=== PATIENT | female | born 1970 | race Caucasian/White ===

== ENCOUNTER → 2019-02-19 | Outpatient (CLI) | payer BC ==
[2019-02-19 08:49] LABS: BASO # 0.1 x10^3/uL (0.0-0.2); BASO % 1 % (0-3); EOS # 0.2 x10^3/uL (0.0-0.7); EOS % 4 % (0-3); HEMOGLOBIN 14.8 g/dL (12.0-15.5); LYMPH # 1.5 x10^3/uL (1.0-4.8); LYMPH % 25 % (24-48); MEAN CORPUSCULAR HEMOGLOBIN 30 pg (25-35); MEAN CORPUSCULAR HGB CONC 33 g/dL (31-37); MEAN CORPUSCULAR VOLUME 91 fL (79-100); MONO # 0.4 x10^3/uL (0.0-1.1); MONO % 7 % (0-9); NEUT # 3.9 x10^3uL (1.8-7.7); NEUT % 64 % (31-73); PLATELET COUNT 372 x10^3/uL (140-400); RED BLOOD COUNT 4.96 x10^6/uL (3.50-5.40); RED CELL DISTRIBUTION WIDTH 14.8 % (11.5-14.5); WHITE BLOOD COUNT 6.1 x10^3/uL (4.0-11.0)
--- NOTE | 2019-02-19 09:30 | RAD ---
EXAM: Abdomen sonogram. HISTORY: Polycythemia. TECHNIQUE: Sonographic imaging of the abdomen was performed. COMPARISON: None. FINDINGS: The exam is limited due to patient body habitus. There is hepatomegaly and hepatic steatosis. No focal hepatic lesion is seen. The common bile duct is obscured. The spleen is upper normal in size. The kidneys are normal in size. There is no hydronephrosis. The visualized portions of the pancreas, aorta and inferior vena cava are unremarkable. The gallbladder appears absent. IMPRESSION: 1. Limited exam due to body habitus. 2. Hepatomegaly and hepatic steatosis. 3. Upper normal spleen size. Electronically signed by: Inocencia Kruger MD (02/19/2019 9:27 AM) [id number]
== END | disposition home or self-care (01) ==
LOC: US 07:45
PROVIDERS: ATTEND Family Medicine
DX: K76.0 Fatty (change of) liver, not elsewhere classified (principal); D75.1 Secondary polycythemia
CPT/HCPCS: 36415; 76700; 85025; 99195